=== PATIENT | male | born 1960 | race Caucasian/White ===

== ENCOUNTER 2020-08-05 10:12 | Observation (INO) ==
[~2020-08-05 10:12] MED LIST: Buffered Lidocaine 1% SYRIN 1 ml INTRADERM ONE; Famotidine IV 10 MG/ML 2 ml VIAL (20 mg) IV ONE; Lactated Ringers 1000 ml BAG 1,000 ML IV SCH
[2020-08-05] MEDS ORDERED: Buffered Lidocaine 1% SYRIN 1 ml INTRADERM ONE (10:57)
[2020-08-05] MEDS ORDERED: Famotidine IV 10 MG/ML 2 ml VIAL (20 mg) ONE (10:57)
[2020-08-05] MEDS ORDERED: fentaNYL 250 mcg/5 ml 50 MCG/ML 5 ml VIAL (250 MCG) ONE (11:26)
[2020-08-05] MEDS ORDERED: Midazolam 2 mg/2 ml VIAL 1 mg/ml 2 ml VIAL (2 mg) ONE (11:26)
[2020-08-05] MEDS ORDERED: Lidocaine 2% PF 5 ML VIAL ONE (11:29)
[2020-08-05] MEDS ORDERED: Dexamethasone IV 4 MG/ML VIAL 1 ml VIAL ONE (11:29)
[2020-08-05] MEDS ORDERED: Propofol 10 MG/ML 20 ML BTL ONE (11:29)
[2020-08-05] MEDS ORDERED: Ondansetron 4 mg VIAL 2 MG/ML 2 ml VIAL ONE (11:29)
[2020-08-05] MEDS ORDERED: Succinylcholine 200 mg VIAL 20 mg/ml 10 ml VIAL (200 mg) ONE (11:29)
[2020-08-05] MEDS ORDERED: Metoprolol Tartrate 5 mg VIAL 5 ml VIAL (1 mg/ml) ONE (11:44)
[2020-08-05] MEDS ORDERED: Acetaminophen IV 1 GM/100ML 100 ML ONE (14:27)
[2020-08-05] MEDS ORDERED: Naloxone 0.4 mg VIAL 0.4 mg/ml 1 ml VIAL IV PRN (14:27)
[2020-08-05] MEDS ORDERED: fentaNYL 100 mcg/2 ml 50 MCG/ML VIAL IV PRN (14:27)
[2020-08-05] MEDS ORDERED: DiMENhydriNATE IV 50 mg/ml 1 ml VIAL IV PUSH PRN (14:27)
[2020-08-05] MEDS ORDERED: Ondansetron 4 mg VIAL 2 MG/ML 2 ml VIAL IV PRN ×3 (14:27→19:17)
[2020-08-05] MEDS ORDERED: Phenylephrine 40 mcg/mL 10mL (400mcg) SYRINGE ONE (14:33)
[2020-08-05] MEDS ORDERED: EPHEDrine (Pressors) 50 MG/ML VIAL ONE (14:36)
[2020-08-05] MEDS ORDERED: Glycopyrrolate IV 0.2 MG/ML 1 ML VIAL ONE (15:06)
[2020-08-05] MEDS ORDERED: Phenylephrine IV 10 MG/ML 1 ml VIAL ONE (15:19)
[2020-08-05] MEDS ORDERED: Bacitracin OINTMENT TUBE ONE (16:35)
[2020-08-05] MEDS ORDERED: oxyCODONE 5 mg/5 ml ORAL.SOLN UDC PO PRN (19:15)
[2020-08-05] MEDS: oxyCODONE/Acetamin 5/325 mg TAB PO PRN (20:12)
[2020-08-05] MEDS: Bacitracin OINTMENT PAK TOPICAL SCH (20:12)
[2020-08-06] MEDS: oxyCODONE/Acetamin 5/325 mg TAB PO PRN (06:28)
[2020-08-06] MEDS: Bacitracin OINTMENT PAK TOPICAL SCH (09:03)
[2020-08-06 09:53] VITALS: BP 102/49
== END 2020-08-06 10:26 | disposition home or self-care (01) ==
LOC: OR 10:12 → SSU 10:12
PROVIDERS: ADMIT Otolaryngology; ATTEND Internal Medicine